=== PATIENT | male | born 1950 | race Asian ===

== ENCOUNTER → 2017-12-23 | Outpatient (CLI) | payer MEDICARE, OTHER ==
[~2017-12-23] MED LIST: ATOR20TA86 PO; DILT60 PO; ESOM20CA31 PO; RIVA20TA PO; TELM40 PO
== END | disposition home or self-care (01) ==
LOC: RADPV 11:30
DX: R06.02 Shortness of breath (principal); I70.0 Atherosclerosis of aorta
CPT/HCPCS: 71046

== ENCOUNTER → 2018-01-04 | Outpatient (CLI) | payer MEDICARE, OTHER | END | disposition home or self-care (01) | LOC: RADPV 13:11 | PROVIDERS: ATTEND Physical Medicine & Rehabilitation | DX: M46.04 Spinal enthesopathy, thoracic region (principal) | CPT/HCPCS: 72072 ==

== ENCOUNTER → 2018-12-13 | Outpatient (CLI) | payer MEDICARE, OTHER | END | disposition home or self-care (01) | LOC: RADPV 10:11 | PROVIDERS: ATTEND Internal Medicine | DX: M43.16 Spondylolisthesis, lumbar region (principal); M48.07 Spinal stenosis, lumbosacral region; M47.896 Other spondylosis, lumbar region; I70.0 Atherosclerosis of aorta; M25.78 Osteophyte, vertebrae | CPT/HCPCS: 72100 ==

== ENCOUNTER 2019-05-31 10:59 | Emergency (ER) | payer MEDICARE, OTHER ==
[~2019-05-31] VITALS: Ht 172.7 cm; Wt 101.0 kg
[2019-05-31] MEDS ORDERED: TAMS-1 PO (11:16)
[2019-05-31] MEDS ORDERED: SPIR25 PO (11:16)
[2019-05-31] MEDS ORDERED: TRAM50TA4 PO (11:23)
[2019-05-31] MEDS: LIDOCAINE 5% TRANSDERMAL PATCH TD ONE (13:49)
[2019-05-31] MEDS: TraMADol HCL 50 MG TABLET PO ONE (13:49)
[2019-05-31 14:30] VITALS: BP 155/68
== END 2019-05-31 15:50 | disposition home or self-care (01) ==
LOC: EMS 11:02
DX: M54.5 Low back pain (principal); I10 Essential (primary) hypertension; G89.29 Other chronic pain; I48.91 Unspecified atrial fibrillation; I25.10 Atherosclerotic heart disease of native coronary artery without angina pectoris; J44.9 Chronic obstructive pulmonary disease, unspecified; E78.00 Pure hypercholesterolemia, unspecified; Z77.22 Contact with and (suspected) exposure to environmental tobacco smoke (acute) (chronic)
CPT/HCPCS: 72131